=== PATIENT | female | born 1980 | race Asian ===

== ENCOUNTER 2020-04-07 19:13 | Emergency (ER) | payer OTHER ==
[~2020-04-07] VITALS: Ht 165.1 cm; Wt 63.5 kg
--- NOTE | 2020-04-07 19:30 | NUR ---
Patient BIB [id number] was found sitting in her car c/o of a severe headache and increased blood pressure. Respiratory even and unlabored, no cough no sob. Denies any chest pain, palpitations, or any pressure. Per paramedics patient did have an episode of vomiting as well.
[2020-04-07] MEDS ORDERED: METOCLOPRAMIDE HCL 10 MG/2 ML VIAL IV ONE (19:45)
[2020-04-07] MEDS ORDERED: IV NORMAL SALINE 1000 ML BAG IV ONE (19:45)
[2020-04-07 19:58] LABS: BASOPHILS # (AUTO) 0.1 K/uL (0.0-8.0); BASOPHILS % (AUTO) 0.6 % (0.0-2.0); EOSINOPHILS # (AUTO) 0.5 K/uL (0.0-0.7); EOSINOPHILS % (AUTO) 3.3 % (0.0-7.0); HEMOGLOBIN 13.7 g/dL (10.9-14.3); MEAN CORPUSCULAR HEMOGLOBIN 27.8 uug (24.7-32.8); MEAN CORPUSCULAR HGB CONC 33 g/dL (32.3-35.6); MEAN CORPUSCULAR VOLUME 83.4 fL (75.5-95.3); MONOCYTES # (AUTO) 0.8 K/uL (2.0-10.0); MONOCYTES % (AUTO) 5.3 % (0.0-11.0); NEUTROPHILS % (AUTO) 64.8 % (38.5-71.5); PLATELET COUNT (AUTO) 341 K/uL (179-408); RED BLOOD CELL COUNT(AUTO) 4.92 MIL/uL (3.63-4.92); WHITE BLOOD COUNT (AUTO) 15.4 K/uL (3.8-11.8)
--- NOTE | 2020-04-07 20:00 | NUR ---
Radiologist on the line with ERMD discussing results.
[2020-04-07 20:06] LABS: CREATININE 0.8 mg/dL (0.6-1.3); POTASSIUM 3.2 mmol/L (3.5-5.1)
[2020-04-07] MEDS ORDERED: NICARDIPINE-NS IVPB 200 ML IV STA (20:10)
--- NOTE | 2020-04-07 20:10 | NUR ---
Cardene IV drip started on patient. Started at 2.5mg/hr to maintain SBP <140. Patient current blood pressure is 180/105 with a HR of 109
[2020-04-07] MEDS ORDERED: NIMODIPINE 30 MG CAPSULE PO ONE (20:15)
[2020-04-07] MEDS ORDERED: METOCLOPRAMIDE HCL 10 MG/2 ML VIAL ONE (20:24)
[2020-04-07] MEDS ORDERED: NICARDIPINE IN NS 200 ML IV ONE (20:25)
--- NOTE | 2020-04-07 20:35 | NUR ---
Vaibhav from [facility] called back for transfer info. Patient will be going to Room 4513, accepting MD is Dr Ledesma. Call for report is [phone].
[2020-04-07] MEDS ORDERED: PROPOFOL 100 ML IV STA ×2 (20:53→22:15)
[2020-04-07] MEDS ORDERED: PROPOFOL 100 ML ONE (20:58)
[2020-04-07] MEDS ORDERED: PROPOFOL 200 MG/20 ML BOTTLE ONE (21:02)
[2020-04-07] MEDS ORDERED: FENTANYL CITRATE 100 MCG/2 ML AMPUL ONE (21:42)
--- NOTE | 2020-04-07 21:49 | NUR ---
2145 Etomidate 20mg given IVP per ERMD order 2150 Succinylcholine 120mg given IVP per ERMD
--- NOTE | 2020-04-07 21:53 | NUR ---
Patient successfully intubated, asymmetic chest rise, color change on ET tube. 8.0 tube @ 22 at the lip. AC 14 TV450 PEEP 0, 40% FiO2.
--- NOTE | 2020-04-07 22:00 | NUR ---
Report given to CRYS Caruso at [facility]. Patient is going to room [address] Ledesma. [facility] transport #[id number] here to transport patient to other facility. Patient will be transported on a ventilator. Settings at AC14 TV450 0PEEP FiO2 40%. 8.0 @ 21 at the [facility].
[2020-04-07] MEDS ORDERED: FENTANYL CITRAT IV 1,000 MCG in IV NORMAL SALINE 80 ML IV STA (22:15)
--- NOTE | 2020-04-07 22:15 | NUR ---
Patient transported with Propofol running and Fentanyl drip. Becky alegria/chris per ERMBibi at transfer due to the low blood pressure.
[2020-04-07 23:46] LABS: *BILIRUBIN,URIN NEGATIVE (NEGATIVE); *BLOOD, URINE 3+ (NEGATIVE); *CLARITY,URINE CLOUDY (CLEAR); *COLOR,URINE PINK (YELLOW); *KETONES,URINE 2+ (NEGATIVE); *URINE HCG, QUAL NEGATIVE (NEGATIVE); *UROBILINOGEN,URINE 0.2 E.U./dl (NORMAL); LEUKOCYTE ESTERASE ,URINE NEGATIVE (NEGATIVE); NITRITE, URINE NEGATIVE (NEGATIVE); UGLUCOSE TRACE (NEGATIVE)
[2020-04-08 00:27] LABS: BACTERIA,URINE NONE SEEN /HPF (NONE SEEN); RBC,URINE TNTC /HPF (0-3); SQUAMOUS EPITHELIAL CELL,UR FEW /HPF (NONE SEEN); URINE AMORPHOUS URATE FEW /HPF; WBC,URINE 0-3 /HPF (0-3)
== END 2020-04-07 22:15 | disposition short-term general hospital (02) ==
LOC: ER 19:13
DX: I60.9 Nontraumatic subarachnoid hemorrhage, unspecified (principal); R40.2410 Glasgow coma scale score 13-15, unspecified time; I10 Essential (primary) hypertension; E11.9 Type 2 diabetes mellitus without complications
CPT/HCPCS: 31500; 36415; 70450; 71045 ×2; 80048; 81001; 82962; 84703; 85025; 96365; 96366; 96368; 96375; 99291; J2765; J3010 ×2; A4663; J3490; J7030